=== PATIENT | female | born 1965 ===

== ENCOUNTER 2019-05-04 13:27 | Emergency (ER) | payer BC ==
[~2019-05-04] VITALS: Ht 157.5 cm; Wt 79.4 kg
[~2019-05-04 13:27] MED LIST: VARE1 PO
[2019-05-04] MEDS ORDERED: Bactrim Ds Tab1 EACH PO (15:37)
== END 2019-05-04 16:04 | disposition home or self-care (01) ==
LOC: ER 13:27
DX: N76.4 Abscess of vulva (principal); F17.210 Nicotine dependence, cigarettes, uncomplicated
CPT/HCPCS: 56405; 99282-25

== ENCOUNTER → 2019-10-21 | Outpatient (CLI) | payer BC ==
[~2019-10-21] MED LIST changes: +Bactrim Ds Tab1 EACH PO
== END | disposition home or self-care (01) ==
LOC: LAB SHORT 07:45 → PLD 07:45
DX: L30.9 Dermatitis, unspecified (principal)
CPT/HCPCS: 88305; 88312

== ENCOUNTER → 2021-08-31 | Outpatient (CLI) | payer BC ==
[~2021-08-31] MED LIST changes: +ATOR40TA PO; +Aspir 8181 MG PO; +CICLODAN6.6 ML TP; +Chantix1 MG PO; +LOSA25 PO; +METF500 PO; +NEBI5 PO; +Permethrin60 GM TOP; +TRIA15CR3 TOP
== END | disposition home or self-care (01) ==
LOC: LAB SHORT 16:45 → LAB 16:45
DX: R10.2 Pelvic and perineal pain (principal)
CPT/HCPCS: 87086

== ENCOUNTER → 2021-09-06 | Outpatient (CLI) | payer BC | LOC: LAB SHORT 16:35 | DX: R30.0 Dysuria (principal) | CPT/HCPCS: 87086 ==